=== PATIENT | male | born 1980 | race African-American/Black ===

== ENCOUNTER 2018-02-16 09:45 | Emergency (ER) | payer SELFPAY ==
[2018-02-16] MEDS ORDERED: NA CHLORIDE 0.9% 1,000 ML ONE (09:59)
[2018-02-16] MEDS ORDERED: KETOROLAC 30 MG/ML INJ ONE (09:59)
[2018-02-16 10:13] LABS: Absolute Lymphocytes (CBC) 2.9 K/uL (0.7-4.9); Absolute Monocytes 0.7 K/uL (0.1-1.3); Absolute Neutrophil 3.1 K/uL (1.8-8.0); Basophils % 1.1 % (0-1.3); Eosinophils % 2.7 % (0-4.4); Hematocrit 41.9 % (39.6-49.0); Lymphocytes % 41.4 % (15.3-44.8); MCH 25.9 pg (27.0-35.0); MPV 8.2 fL (7.6-11.3); RBC Red Blood Cell Count 5.44 M/uL (4.33-5.43)
[2018-02-16 10:20] LABS: Potassium 4.1 mEq/L (3.6-5.0)
[2018-02-16 10:26] LABS: Bilirubin Direct 0.1 mg/dL (0-0.2); Bilirubin Total 0.5 mg/dL (0.3-1.2); Protein, Total 6.7 g/dL (6.0-8.3)
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
== END 2018-02-16 11:49 | disposition home or self-care (01) ==
LOC: ER 09:45
DX: S32.020A Wedge compression fracture of second lumbar vertebra, initial encounter for closed fracture (principal); V49.40XA Driver injured in collision with unspecified motor vehicles in traffic accident, initial encounter
CPT/HCPCS: 36415; 70450; 71250; 72125; 80048; 80076; 83690; 85025; 86850; 86900; 86901; 96361; 96374; 99285; J7030